=== PATIENT | male | born 1985 | race Caucasian/White ===

== ENCOUNTER → 2022-05-25 | Outpatient (CLI) | payer OTHER | LOC: MHCPAIN 11:18 | DX: M53.3 Sacrococcygeal disorders, not elsewhere classified (principal); M54.50 Low back pain, unspecified; M51.36 Other intervertebral disc degeneration, lumbar region | CPT/HCPCS: G0463 ==

== ENCOUNTER → 2023-05-15 | Outpatient (CLI) | payer OTHER | LOC: MHCPAIN 05-01 09:28 | DX: M54.50 Low back pain, unspecified (principal); M53.3 Sacrococcygeal disorders, not elsewhere classified; I10 Essential (primary) hypertension | CPT/HCPCS: J3301; Q9967 ==

== ENCOUNTER 2023-08-26 06:40 | Emergency (ER) | payer OTHER ==
[~2023-08-26] VITALS: Ht 180.3 cm; Wt 95.5 kg
[~2023-08-26 06:40] MED LIST: CEPHALEXIN500 M1 PO; HCTZ 25MG TAB25 MG PO; ZOLOFT 100MG100 MG PO
[2023-08-26 06:45] VITALS: TEMP 97.9
[2023-08-26] MEDS ORDERED: Tranexamic Acid 1,000 MG/10 ML VIAL NS ONE (07:15)
[2023-08-26] MEDS ORDERED: Oxymetazoline 0.05% Nasal Spray 30 ML BOTTLE NS ONE (07:15)
[2023-08-26 08:55] VITALS: BP 131/85; PULSE 73
== END 2023-08-26 08:57 | disposition home or self-care (01) ==
LOC: COL.ER 06:40
DX: R04.0 Epistaxis (principal)

== ENCOUNTER → 2024-04-09 | Outpatient (CLI) | payer OTHER | LOC: MHCPAIN 14:09 | DX: M47.26 Other spondylosis with radiculopathy, lumbar region (principal); M51.36 Other intervertebral disc degeneration, lumbar region; M51.26 Other intervertebral disc displacement, lumbar region; M48.061 Spinal stenosis, lumbar region without neurogenic claudication | CPT/HCPCS: G0463 ==

== ENCOUNTER → 2024-05-06 | Outpatient (CLI) | payer OTHER ==
[~2024-05-06] MED LIST changes: +Iohexol 300 - 10 ML VIAL ONE; +Lidocaine PF 2% (20 MG/ML) 2 ML VIAL ONE
== END ==
LOC: MHCPAIN 08:54
DX: M54.16 Radiculopathy, lumbar region (principal)
CPT/HCPCS: J1100; Q9967